=== PATIENT | female | born 1990 | race African-American/Black ===

== ENCOUNTER 2021-01-31 18:55 | Emergency (ER) | payer OTHER ==
[2021-01-31] MEDS ORDERED: Lidocaine 1% w/Epinephrine 1:100K 20 ML VIAL ONE (19:49)
== END 2021-01-31 21:25 | disposition home or self-care (01) ==
LOC: ERS 18:55
DX: L02.31 Cutaneous abscess of buttock (principal)
CPT/HCPCS: 10060

== ENCOUNTER 2021-03-07 12:31 | Emergency (ER) | payer OTHER ==
[2021-03-07 13:22] LABS: BHCG - Serum Negative (NEGATIVE); Hemoglobin 12.7 g/dL (12.0-16.0); Mean Corpuscular HGB CONC 33.7 g/dL (32.0-36.0); Mean Corpuscular Hemoglobin 31.4 pg (27.0-31.0); Mean Corpuscular Volume 93.4 fL (78.0-98.0); Mean Platelet Volume 8.4 fL (7.4-10.4); Platelet Count 152 thou/uL (130-400); Pregs Control Background? CLEAR/WHITE (CLR/WHITE); Pregs Control Bar Appear? YES (CONTROL BAR); RBC Distribution Width 13.2 % (11.5-14.5); Red Blood Cell (RBC) Count 4.05 mill/uL (4.20-5.40); White Blood Cell (WBC) Count 4.3 thou/uL (4.8-10.8)
[2021-03-07 13:39] LABS: ALT (SGPT) 32 U/L (8-55); AST (SGOT) 30 U/L (5-34); Albumin 3.7 g/dL (3.5-5.0); Alkaline Phosphatase 66 U/L (40-110); Anion Gap 8 mmol/L (10-20); BUN (Urea Nitrogen) 8 mg/dL (7.0-18.7); Bilirubin, Total 0.2 mg/dL (0.2-1.2); Calc. Creatinine Clearance 0 mL/min (70-130); Carbon Dioxide 28 mmol/L (22-29); Chloride 106 mmol/L (98-107); Globulin 2.6 g/dL (2.4-3.5); Glucose 119 mg/dL (70-105); Potassium 3.8 mmol/L (3.5-5.1); Protein, Total 6.3 g/dL (6.0-8.3); Sodium 138 mmol/L (136-145)
[2021-03-07 13:40] LABS: Band 6 % (5-11); Lymphocytes 19 % (21-51); MDiff Complete? YES; Monocytes 17 % (0-10); Neutrophil 56 % (42-75); Nucleated RBC 2 % (0); Platelet Morphology Comment Appears Adequate; Polychromasia SLIGHT = 2-3 cells (100X) (0-2/hpf); Promyelocytes 2 % (0-0)
[2021-03-07] MEDS ORDERED: Ibuprofen 800 MG TAB ONE (15:10)
[2021-03-07] MEDS ORDERED: Acetaminophen 325 MG TAB ONE (15:10)
[2021-03-07 16:20] LABS: Bacteria/HPF None Seen HPF (None Seen); Bilirubin Negative (Negative); Blood, Urine Negative (Negative); Glucose, Urine (Dipstick) Normal (Negative); Ketone, Urine Negative (Negative); Leukocyte 75 Leu/uL (Negative); Nitrite Negative (Negative); Protein, Urine (Dipstick) 10 mg/dL (Neg-Trace); RBC/HPF 0-3 HPF (0-3); Specific Gravity, Urine 1.025 (1.002-1.036); Urobilinogen Normal mg/dL (Less than 2)
[2021-03-07 16:24] LABS: Clarity Hazy (Clear)
== END 2021-03-07 16:46 | disposition home or self-care (01) ==
LOC: ERS 12:31
DX: N10 Acute pyelonephritis (principal)
CPT/HCPCS: 36416; 80053; 81003; 81015; 84703; 85025; 87086; 99284